=== PATIENT | female | born 1995 | race Caucasian/White ===

== ENCOUNTER → 2020-07-23 | Outpatient (CLI) | payer OTHER ==
[~2020-07-23] VITALS: Ht 175.3 cm; Wt 178.5 kg
[2020-07-23 13:33] LABS: BUN/CREATININE RATIO 13 (0-10)
== END ==
LOC: OPSV 12:25
PROVIDERS: Obstetrics & Gynecology
DX: O00.90 Unspecified ectopic pregnancy without intrauterine pregnancy (principal)
CPT/HCPCS: 36415; 80053; 84702; 86850; 86900; 86901; 96372; J9250

== ENCOUNTER → 2020-07-29 | Outpatient (CLI) | payer OTHER | LOC: LAB 17:44 | DX: O00.90 Unspecified ectopic pregnancy without intrauterine pregnancy (principal) | CPT/HCPCS: 84702 ==

== ENCOUNTER → 2020-08-06 | Outpatient (CLI) | payer OTHER ==
[~2020-08-06] VITALS: Ht 175.3 cm; Wt 178.3 kg
[2020-08-06 18:38] LABS: HEMOGLOBIN 12.1 gm/dl (12.3-15.3); RED BLOOD COUNT 4.26 M/UL (4.00-5.10); WHITE BLOOD COUNT 7.4 K/UL (4.5-11.0)
[2020-08-06 18:58] LABS: BUN/CREATININE RATIO 14 (0-10)
== END ==
LOC: EROP 17:32
PROVIDERS: Obstetrics & Gynecology
DX: O00.90 Unspecified ectopic pregnancy without intrauterine pregnancy (principal)
CPT/HCPCS: 36415; 80053; 84702; 85025; 96372; J9250

== ENCOUNTER 2021-06-24 21:05 | Outpatient (CLI) | payer OTHER | END 2021-06-24 22:25 | disposition home or self-care (01) | LOC: GENOP 21:05 | DX: O36.8130 Decreased fetal movements, third trimester, not applicable or unspecified (principal); O99.283 Endocrine, nutritional and metabolic diseases complicating pregnancy, third trimester; E03.9 Hypothyroidism, unspecified; O99.213 Obesity complicating pregnancy, third trimester; E66.01 Morbid (severe) obesity due to excess calories; Z3A.32 32 weeks gestation of pregnancy | CPT/HCPCS: 59025 ==

== ENCOUNTER 2021-09-02 20:40 | Emergency (ER) | payer OTHER | END 2021-09-02 21:07 | disposition left against medical advice (07) | LOC: ER1 20:40 | DX: Z53.21 Procedure and treatment not carried out due to patient leaving prior to being seen by health care provider (principal) ==